=== PATIENT | male | born 1940 | race Caucasian/White ===

== ENCOUNTER 2018-02-05 13:22 | Day surgery (SDC) | payer MEDICARE, SELFPAY ==
[2018-02-05 13:44] VITALS: BP 147/88; PULSE 53; RESP 16; TEMP 36.6; O2SAT 98; BMI 22.1
[2018-02-05] MEDS: SODIUM CHLORIDE 0.9% 1,000 ML 200 ML IV (14:06)
--- NOTE | 2018-02-05 14:21 | PM.HP.1 ---
History of Present Illness Date Patient Seen: 02/05/18 Time Patient Seen: 14:21 Chief complaint: [id number] Narrative: 77-year-old male who presents for colorectal screening. It has been 20 years at least since his last examination. He underwent colonoscopy at that time. He reports that the study was normal. He is not having any current gastrointestinal symptoms. Denies nausea, vomiting, loss of appetite, unintended weight loss, abdominal pain, change in bowel habits, diarrhea, constipation, melena, hematochezia, or bright red blood per rectum. Patient History Medical History Hyperlipidemia (Chronic 02/27/13) Glaucoma (Chronic 10/20/13) Gastroesophageal reflux disease (Chronic 10/20/13) Multiple allergies (Chronic 12/06/16) History of appendicitis (Acute) Colonic volvulus (Resolved) Surgical History History of appendectomy (Acute) Volvulus of midgut (Resolved) History of cataract removal with insertion of prosthetic lens (09/01/14) History of cataract removal with insertion of prosthetic lens (08/19/14) History of esophagogastroduodenoscopy (EGD) Family & Social History Family History: Reviewed 02/05/18 by Jonel Rey MD Social History: household members spouse Tobacco & Substance use: Smoking Status Never smoker Meds Home Medications Medication Instructions Recorded Confirmed Type brimonidine-timolol [Combigan] 1 drp OPHTH DAILY #5 ml 05/29/12 02/05/18 History pantoprazole [Protonix] 40 mg PO QDAY PRN #90 tab 12/31/17 02/05/18 Rx simvastatin 40 mg tablet 40 mg PO HS #90 tab 01/04/18 02/05/18 Rx Allergies Allergy/AdvReac Type Severity Reaction Status Date / Time No Known Drug Allergies Allergy Verified 02/05/18 13:39 Review of Systems Review of Systems All systems reviewed & are unremarkable except as noted in HPI and below Exam Vital Signs (past 8 hours): - 02/05/18 13:44 Temperature 97.8 F Pulse Rate 53 L Respiratory Rate 16 Blood Pressure 147/88 H Pulse Oximetry 98 Oxygen Delivery Method Room Air Narrative Exam Narrative: Elderly thin male lying comfortably in the bed no acute distress. Alert oriented x3. Sclera nonicteric Neck is supple Chest clear to auscultation bilaterally with regular rate rhythm. No murmurs, gallops, rubs Abdomen soft, nondistended, nontender, no masses. He has a well-healed extended right lower quadrant abdominal scar without obvious hernia. No hepatomegaly. Extremities show no clubbing, cyanosis, or edema Objective Labs Labs: No recent laboratory or radiographic studies for review Assessment & Plan (1) Screening for colorectal cancer: Current visit: Yes Status: Acute Plan: Assessment/Plan Narrative: 77-year-old male requiring colorectal screening since it has been more than 20 years from his prior examination. Colonoscopy is currently recommended. I discussed the technical details of the procedure with the patient at length. Risks, benefits, alternatives were explained. He understands that his risk of incomplete colonoscopy is slightly higher given his history of volvulus and prior major abdominal surgery. Risks including but not limited to sedation, aspiration, bleeding, pain, missed lesion, incomplete examination, need for further radiographic studies, colonic perforation, need for major abdominal surgery, and all attendant risks of major surgery were explained in detail. All questions were answered to his satisfaction, and he voiced understanding. Consent was placed on the chart. We will proceed with colonoscopy as above.
--- NOTE | 2018-02-05 14:27 | PM.PREOP ---
Pre-operative Note Interval Note Pre-op Check: History & Physical Reviewed by Physician, Exam Performed and History & Physical exam performed today H&P completed within 30 days and has changed as indicated here:: Patient seen and examined today. History physical examination documented on the chart. He requires colorectal screening. Colonoscopy is recommended. We will proceed as planned today. ASA Class (for procedural sedation): II
[2018-02-05] MEDS: fentaNYL 250 MCG/5 ML INJ IV (14:56)
[2018-02-05] MEDS: MIDAZOLAM 5 MG/5 ML VIAL IV (14:57)
--- NOTE | 2018-02-05 14:58 | PM.OP.ENDO ---
Operative Date/Time/Diagnoses - Date of procedure: 02/05/18 Time of procedure: 14:58 Pre-op diagnosis: Colorectal screening Post-op diagnosis: other (Sigmoid diverticulosis with associated stricture) Procedure & Clinicians Study performed: 1. Sedation per surgeon 2. Incomplete colonoscopy constituting flexible sigmoidoscopy to 30 cm Same procedure as scheduled: No (Patient was significant sigmoid diverticulosis and associated stricture prohibiting complete colonoscopy) Indications: 77-year-old male who presents for colorectal screening. It has been 20 years approximately since his last exam. Colonoscopy is currently recommended. Surgeon: Jonel Rey Procedure Notes SCOAP/Timeout: Yes Procedure in detail: After obtaining informed consent patient was brought to the endoscopy suite and attached all appropriate cardiopulmonary monitors. Nasal cannula oxygen was applied. He was placed in left lateral decubitus position. A SCOAP time-out was performed per standard protocol. Intravenous sedation was achieved per the surgeon using fentanyl and Versed. Digital rectal examination was performed revealing no rectal masses or abnormalities. Prostate was smooth without nodules. Colonoscope was inserted into the rectum and the bowel was insufflated with carbon dioxide. Under direct visualization of the colonic lumen the scope was advanced approximately 30 cm in the sigmoid colon. The rectosigmoid junction was quite fixed and there were several tight sigmoid sharp corners at this level. The 1st 1 was negotiated but the 2nd 1 was encountered immediately thereafter in the midst of significant circumferential diverticulosis. At this point the lumen could not be fully visualized despite multiple maneuvers I could not advance the scope safely beyond this level due to an apparent stricture. I was unable to ascertain whether the stricture was from prior diverticulitis or from his adhesions due to previous abdominal operation for volvulus. Regardless the patient was repositioned both supine and then into the right lateral decubitus position. He was then placed back in left lateral decubitus position. Despite all of these maneuvers and inserting and reinserting the endoscope in an attempt to obtain a better angle at the strictured portion of the sigmoid colon I was unable to navigate beyond this point at 30 cm approximately. No abnormalities were appreciated up to that level. Diverticulosis only was seen. At this point it became apparent that I was not going to be able to navigate beyond this level so I abandoned the procedure at this stage. Scope was removed. Patient was taken recovery in stable condition. We will proceed with air contrast barium enema in the near future to complete the screening examination process. Scope withdrawal time: Not applicable Sedation minutes: 25 Findings: diverticulosis and stricture (As above) Specimen(s): none sent Complications: none Recommendations: High fiber diet and Other recommendation (Complete screening examination with follow-up air contrast barium enema) Plan for aftercare: 1. Discharge to home today 2. Follow up with surgery Clinic after barium enema study is completed Follow up: weeks (Following air contrast barium enema study) Disposition: PACU
[2018-02-05 15:00] VITALS: BP 106/55; PULSE 48; RESP 13; TEMP 36.4; O2SAT 97
[2018-02-05 15:04] VITALS: BP 92/47; PULSE 44; RESP 18; O2SAT 98
[2018-02-05 15:21] VITALS: BP 128/66; PULSE 51; RESP 15; TEMP 36.2; O2SAT 96
== END 2018-02-05 15:32 | disposition home or self-care (01) ==
PROVIDERS: Family Provider Family Medicine; PCP Family Medicine; Visit Provider Surgery
PROC: 0DJD8ZZ Inspection of Lower Intestinal Tract, Via Natural or Artificial Opening Endoscopic (ICD-10-PCS; CPT 45378; principal; 2018-02-05 15:00)
DX: Z12.11 Encounter for screening for malignant neoplasm of colon (principal); K57.30 Diverticulosis of large intestine without perforation or abscess without bleeding
CPT/HCPCS: G0104; 99152; 99153; J2250; J3010

== ENCOUNTER → 2018-02-11 09:06 | Outpatient (CLI) | payer MEDICARE, SELFPAY ==
--- NOTE | 2018-02-11 09:08 | DI.RAD.S_ITS ---
PROCEDURE: FL BARIUM ENEMA W AIR CONTRAST INDICATIONS: incomplete colonoscopy for colorectasl screening COMPARISON: None. FINDINGS: KUB: Pre-procedural office nurse practitioner film demonstrates a normal bowel gas pattern. No suspicious abdominal calcifications. Visualized solid organ contours are normal in size. No suspicious bony lesions. Colon: There is adequate air-contrast opacification from the rectum to the cecum. No strictures, ulcers, polyps, or masses are seen. Haustral folds are normal in thickness throughout. There is sigmoid and left colonic diverticulosis, no acute diverticulitis is suspected.. IMPRESSION: Moderately redundant colon, sigmoid and left colonic diverticulosis, no polyp or mass, or evidence of acute inflammatory process. The cecum was well-visualized, and appears normal. Dictated by: Lex Kirby M.D. on 02/11/2018 at 11:42 Approved by: Lex Kirby M.D. on 02/11/2018 at 11:43
== END ==
PROVIDERS: PCP Family Medicine; Visit Provider Surgery
DX: Q43.8 Other specified congenital malformations of intestine (principal); K57.90 Diverticulosis of intestine, part unspecified, without perforation or abscess without bleeding; Z12.11 Encounter for screening for malignant neoplasm of colon
CPT/HCPCS: 74280

== ENCOUNTER → 2018-09-18 09:09 | Outpatient (CLI) | payer MEDICARE, SELFPAY ==
[2018-09-18 09:58] LABS: Alanine Aminotransferase 26 IU/L (21-72); Albumin 4.1 g/dL (3.5-5.0); Albumin Globulin Ratio 1.4 (1.0-2.8); Alkaline Phosphatase 55 U/L (38-126); Aspartate Aminotransferase 21 IU/L (17-59); BUN Creatinine Ratio 23.3 (6-22); Bilirubin Total 0.7 mg/dL (0.2-1.3); Blood Urea Nitrogen 21 mg/dL (9-20); Calcium 8.8 mg/dL (8.4-10.2); Carbon Dioxide 31 mmol/L (22-32); Chloride 101 mmol/L (98-107); Cholesterol 192 mg/dL (140-199); Estimated Glomerular Filt Rate > 60.0 mL/min (>60); Glucose 99 mg/dL (80-110); HDL Cholesterol 47 mg/dL (40-60); HEMOLYSIS < 15 (0-50); LDL Cholesterol Calculated 122 mg/dL (<100); Potassium 3.8 mmol/L (3.4-5.1); Sodium 140 mmol/L (137-145); Total Protein 7.1 g/dL (6.3-8.2); Triglycerides 116 mg/dL (35-150)
== END ==
PROVIDERS: Family Provider Family Medicine; PCP Family Medicine; Visit Provider Family Medicine
DX: E78.5 Hyperlipidemia, unspecified (principal); R03.0 Elevated blood-pressure reading, without diagnosis of hypertension; R73.01 Impaired fasting glucose
CPT/HCPCS: 36415; 80053; 80061

== ENCOUNTER → 2019-11-14 08:08 | Outpatient (CLI) | payer MEDICARE, SELFPAY ==
[2019-11-14 10:26] LABS: Add Manual Diff / Slide Review NO; Basophils Absolute Auto 0 /uL (0-100); Basophils Percent Auto 0.7 % (0-2); Eosinophils Absolute Auto 200 /uL (0-450); Eosinophils Percent Auto 5.8 % (2-4); Hemoglobin 13.2 g/dL (13.5-17.5); Lymphocytes Absolute Auto 1500 /uL (1100-4500); Lymphocytes Percent Auto 40.1 % (25-40); Mean Corpuscular HGB Conc 33.8 % (30-36); Mean Corpuscular Hemoglobin 31.7 PG (26-34); Monocytes Absolute Auto 300 /uL (0-900); Monocytes Percent Auto 7.9 % (3-14); Neutrophils Absolute Auto 1700 /uL (1500-7000); Neutrophils Percent Auto 45.5 % (50-75); Platelet Count 211 X10^3/uL (150-400); Red Blood Cell Count 4.15 X10^6/uL (4.5-5.9); Red Cell Distribution Width 12.4 % (11.6-14.8); White Blood Cell Count 3.7 X10^3/uL (4.5-11.0)
[2019-11-14 10:40] LABS: Alanine Aminotransferase 16 IU/L (<50); Albumin Globulin Ratio 1.3 (1.0-2.8); Alkaline Phosphatase 56 U/L (38-126); Aspartate Aminotransferase 25 IU/L (17-59); BUN Creatinine Ratio 23.4 (6-22); Bilirubin Total 0.6 mg/dL (0.2-1.3); Blood Urea Nitrogen 22 mg/dL (9-20); Calcium 8.9 mg/dL (8.4-10.2); Carbon Dioxide 31 mmol/L (22-32); Chloride 103 mmol/L (98-107); Cholesterol 181 mg/dL (140-199); Estimated Glomerular Filt Rate > 60.0 mL/min (>60); Globulin 3.1 g/dL (1.7-4.1); Glucose 113 mg/dL (80-110); HDL Cholesterol 45 mg/dL (40-60); HEMOLYSIS < 15 (0-50); LDL Cholesterol Calculated 122 mg/dL (<100); Potassium 4.3 mmol/L (3.4-5.1); Sodium 142 mmol/L (137-145); Total Protein 7.1 g/dL (6.3-8.2); Triglycerides 68 mg/dL (35-150)
== END ==
PROVIDERS: Family Provider Family Medicine; PCP Family Medicine; Referring Provider Family Medicine; Visit Provider Family Medicine
DX: D72.819 Decreased white blood cell count, unspecified (principal); E78.5 Hyperlipidemia, unspecified; K21.9 Gastro-esophageal reflux disease without esophagitis; R03.0 Elevated blood-pressure reading, without diagnosis of hypertension; R73.01 Impaired fasting glucose
CPT/HCPCS: 36415; 80053; 80061; 85025

== ENCOUNTER → 2020-08-02 09:06 | Outpatient (CLI) | payer MEDICARE, SELFPAY ==
[2020-08-02 11:02] LABS: Add Manual Diff / Slide Review NO; Basophils Absolute Auto 0 /uL (0-100); Basophils Percent Auto 0.6 % (0-2); Eosinophils Absolute Auto 200 /uL (0-450); Eosinophils Percent Auto 4.4 % (2-4); Hematocrit 39.3 % (41-53); Hemoglobin 13.4 g/dL (13.5-17.5); Lymphocytes Absolute Auto 1500 /uL (1100-4500); Lymphocytes Percent Auto 34.9 % (25-40); Mean Corpuscular HGB Conc 34.1 % (30-36); Mean Corpuscular Hemoglobin 31.9 PG (26-34); Mean Corpuscular Volume 93.4 fL (80-100); Monocytes Absolute Auto 300 /uL (0-900); Monocytes Percent Auto 8.1 % (3-14); Neutrophils Absolute Auto 2200 /uL (1500-7000); Platelet Count 205 X10^3/uL (150-400); Red Blood Cell Count 4.21 X10^6/uL (4.5-5.9); Red Cell Distribution Width 12.9 % (11.6-14.8); White Blood Cell Count 4.2 X10^3/uL (4.5-11.0)
[2020-08-02 11:16] LABS: HEMOLYSIS < 15 (0-50); Iron 100 ug/dL (49-181)
[2020-08-02 11:18] LABS: BUN Creatinine Ratio 24.2 (6-22); Blood Urea Nitrogen 23 mg/dL (9-20); Calcium 9.1 mg/dL (8.4-10.2); Carbon Dioxide 34 mmol/L (22-32); Chloride 101 mmol/L (98-107); Estimated Glomerular Filt Rate > 60.0 mL/min (>60); Glucose 111 mg/dL (80-110); HEMOLYSIS < 15 (0-50); Potassium 4.8 mmol/L (3.4-5.1); Sodium 139 mmol/L (137-145)
[2020-08-02 11:25] LABS: High Sensitivity CRP - Cardiac 1.6 mg/L (1.0-3.0)
[2020-08-02 11:30] LABS: Percent Iron Saturation 28 % (20-50); Total Iron Binding Capacity 357 ug/dL (261-462); Transferrin 275 mg/dL (206-381)
[2020-08-02 11:52] LABS: Ferritin 26 ng/mL (18-464)
[2020-08-02 12:05] LABS: Vitamin B12 346 pg/mL (239-931)
[2020-08-03 08:36] LABS: Homocysteine 13.4 umol/L (0.0-19.2)
[2020-08-03 23:41] LABS: Methylmalonic Acid,Serum 116 nmol/L (0-378)
== END ==
PROVIDERS: Family Provider Family Medicine; PCP Family Medicine; Referring Provider Family Medicine; Visit Provider Family Medicine
DX: D64.9 Anemia, unspecified (principal); E78.5 Hyperlipidemia, unspecified; K21.9 Gastro-esophageal reflux disease without esophagitis; R73.01 Impaired fasting glucose
CPT/HCPCS: 36415; 80048; 82607; 82728; 83090; 83540; 83550; 83921; 85025; 86140

== ENCOUNTER → 2020-09-08 09:37 | Outpatient (CLI) | payer MEDICARE, SELFPAY ==
[2020-09-08 10:44] LABS: COVID19 -Nasal RAPID Negative (Negative)
== END ==
PROVIDERS: Family Provider Family Medicine; PCP Family Medicine; Visit Provider Specialist
DX: Z20.822 Contact with and (suspected) exposure to COVID-19 (principal)
CPT/HCPCS: 87635; C9803

== ENCOUNTER 2020-09-09 07:30 | Day surgery (SDC) | payer MEDICARE, SELFPAY ==
[2020-09-09] VITALS (8 sets, daily range): BP systolic 70–153; BP diastolic 50–81; PULSE 44–62; RESP 10–20; TEMP 36.1–36.2; O2SAT 96–99; BMI 22.1
--- NOTE | 2020-09-09 | PATH_ITS ---
[facility] Accession Number: [id number] . 01 Material submitted: . esophagus, E-G Junction - GE JUNCTION . 02 Diagnosis: Gastroesophageal Junction, Biopsy: Squamocolumnar junctional mucosa with specialized intestinal metaplasia, consistent with Lopes's esophagus. Negative for dysplasia and malignancy. V 09/14/2020 1004 Local . 02 Electronically signed: . Bruce Higgins MD, PhD, Pathologist NPI- [id number] . 01 Gross description: . The specimen is received in formalin, labeled GE junction and consists of multiple kilpatrick-white fragments of soft tissue measuring 0.8 x 0.6 x 0.2 cm in aggregate. The specimen is entirely submitted in cassette A1. (EA:[id number]) /MRV 09/10/2020 1158 Local . 02 Pathologist provided ICD-10: K22.70 . 02 CPT . 200612 Performed at: 01 [facility] [address] [facility], [place], [place] [id number] MD Roger Brady MD Phone: [phone] Performed at: 02 [facility] [address] [place], [place] [id number] MD Kristin Irwin MD Phone: [phone]
[2020-09-09] MEDS: LACTATED RINGERS 1,000 ML 200 ML IV (07:58)
--- NOTE | 2020-09-09 08:29 | PM.PREOP ---
Pre-operative Note COVID-19 COVID-19 status: Negative Result date/Date tested (Pos, Neg/Pending): 09/08/20 Interval Note History & Physical reviewed/Exam performed by Physician: Yes Changes to H&P: No
[2020-09-09] MEDS: MIDAZOLAM 5 MG/5 ML VIAL IV (08:46)
[2020-09-09] MEDS: LIDOCAINE 4% SOLN 50 ML 20 ML TOP (08:46)
[2020-09-09] MEDS: fentaNYL 250 MCG/5 ML INJ IV (08:47)
--- NOTE | 2020-09-09 08:50 | PM.OP.ENDO ---
Operative Date/Time/Diagnoses Date of procedure: 09/09/20 Time of procedure: 08:51 Pre-op diagnosis: History of Lopes's esophagus Post-op diagnosis: same Procedure & Clinicians Study performed: EGD with cold biopsy Same procedure as scheduled: Yes Indications: Surveillance of Lopes's esophagus Surgeon: Homero Montanez Procedure Notes SCOAP/Timeout: Performed Procedure in detail: The patient had topical anesthetic applied to oropharynx. She was placed in left lateral decubitus position and underwent IV sedation directed by the surgeon consisting of fentanyl and Versed. A bite block was inserted and the scope was advanced through it into the esophagus. The esophagus was unremarkable. GE junction was noted at 40 cm from the incisors. There was no inflammation in this region.. The stomach insufflated well. There were no lesions seen in the body, antrum or at the incisura except an occasional gastric fundic polyp. The pyloric channel was mildly narrowed but patent. The duodenum was unremarkable to the 4th part. The scope was brought back into the stomach and retroflexed. The proximal stomach was normal in appearance. There was no hiatal hernia seen.. The scope was straightened and brought out through the esophagus again. Biopsies were taken in a circular fashion at the GE junction. No additional lesions were seen. The scope was removed and the patient tolerated the procedure well. Scope withdrawal time: Not applicable Sedation minutes: 8 Findings: Lopes's esophagus (By history) Specimen(s): other (GE junction biopsies) Post-procedure Recommendations: EGD in 3 years and Continue medication(s) (Pantoprazole) Follow up: as needed Disposition: PACU
--- NOTE | 2020-09-09 09:40 | SUR.PHASEII ---
Pt met discharge criteria: VSS, denied pain or nausea, able to drink fluids without problem. Discharge instructions discussed, all questions answered. Transported via W\C to private vehicle.
== END 2020-09-09 09:33 | disposition home or self-care (01) ==
PROVIDERS: Family Provider Family Medicine; PCP Family Medicine; Referring Provider Family Medicine; Visit Provider Specialist
PROC: 0DJ08ZZ Inspection of Upper Intestinal Tract, Via Natural or Artificial Opening Endoscopic (ICD-10-PCS; CPT 43235; principal; 2020-09-09 08:30)
DX: K22.70 Barrett's esophagus without dysplasia (principal)
CPT/HCPCS: 43239; 99152; J2250; J3010

== ENCOUNTER → 2021-01-24 09:22 | Outpatient (CLI) | payer MEDICARE, SELFPAY ==
[2021-01-24 10:01] LABS: Add Manual Diff / Slide Review NO; Basophils Absolute Auto 0 /uL (0-100); Basophils Percent Auto 0.7 % (0-2); Eosinophils Absolute Auto 200 /uL (0-450); Eosinophils Percent Auto 5.9 % (2-4); Hematocrit 39.7 % (41-53); Hemoglobin 13.3 g/dL (13.5-17.5); Lymphocytes Absolute Auto 1500 /uL (1100-4500); Lymphocytes Percent Auto 39.9 % (25-40); Mean Corpuscular HGB Conc 33.5 % (30-36); Mean Corpuscular Hemoglobin 31.6 PG (26-34); Mean Corpuscular Volume 94.6 fL (80-100); Monocytes Absolute Auto 300 /uL (0-900); Monocytes Percent Auto 7.7 % (3-14); Neutrophils Absolute Auto 1700 /uL (1500-7000); Neutrophils Percent Auto 45.8 % (50-75); Platelet Count 204 X10^3/uL (150-400); Red Cell Distribution Width 13.8 % (11.6-14.8); White Blood Cell Count 3.7 X10^3/uL (4.5-11.0)
[2021-01-24 10:04] LABS: Hemoglobin A1C% w Est Avg Glu 5.1 % (4.0-6.0)
[2021-01-24 10:46] LABS: BUN Creatinine Ratio 21.1 (6-22); Blood Urea Nitrogen 19 mg/dL (9-20); Calcium 8.9 mg/dL (8.4-10.2); Carbon Dioxide 30 mmol/L (22-32); Chloride 101 mmol/L (98-107); Estimated Glomerular Filt Rate > 60.0 mL/min (>60); Glucose 110 mg/dL (80-110); HEMOLYSIS < 15 (0-50); Potassium 4.6 mmol/L (3.4-5.1); Sodium 138 mmol/L (137-145)
== END ==
PROVIDERS: Family Provider Family Medicine; PCP Family Medicine; Referring Provider Family Medicine; Visit Provider Family Medicine
DX: D64.9 Anemia, unspecified (principal); R73.01 Impaired fasting glucose; K21.9 Gastro-esophageal reflux disease without esophagitis; R03.0 Elevated blood-pressure reading, without diagnosis of hypertension
CPT/HCPCS: 36415; 80048; 83036; 85025

== ENCOUNTER → 2021-11-28 09:03 | Outpatient (CLI) | payer MEDICARE, SELFPAY ==
[2021-11-28 10:02] LABS: Add Manual Diff / Slide Review NO; Basophils Absolute Auto 0 /uL (0-100); Basophils Percent Auto 0.4 % (0-2); Eosinophils Absolute Auto 200 /uL (0-450); Eosinophils Percent Auto 3.1 % (2-4); Hematocrit 38.8 % (41-53); Hemoglobin 13.4 g/dL (13.5-17.5); Lymphocytes Absolute Auto 2000 /uL (1100-4500); Lymphocytes Percent Auto 37.5 % (25-40); Mean Corpuscular HGB Conc 34.5 % (30-36); Mean Corpuscular Hemoglobin 32.2 PG (26-34); Mean Corpuscular Volume 93.4 fL (80-100); Monocytes Absolute Auto 400 /uL (0-900); Neutrophils Absolute Auto 2700 /uL (1500-7000); Platelet Count 200 X10^3/uL (150-400); Red Blood Cell Count 4.15 X10^6/uL (4.5-5.9); Red Cell Distribution Width 13.4 % (11.6-14.8); White Blood Cell Count 5.2 X10^3/uL (4.5-11.0)
[2021-11-28 10:09] LABS: Hemoglobin A1C% w Est Avg Glu 5.4 % (4.0-6.0)
[2021-11-28 10:15] LABS: Alanine Aminotransferase 17 IU/L (<50); Albumin 4.1 g/dL (3.5-5.0); Albumin Globulin Ratio 1.2 (1.0-2.8); Alkaline Phosphatase 59 U/L (38-126); Aspartate Aminotransferase 26 IU/L (17-59); BUN Creatinine Ratio 25.6 (6-22); Bilirubin Total 0.7 mg/dL (0.2-1.3); Blood Urea Nitrogen 23 mg/dL (9-20); Calcium 8.3 mg/dL (8.4-10.2); Carbon Dioxide 30 mmol/L (22-32); Chloride 105 mmol/L (98-107); Cholesterol 182 mg/dL (140-199); Estimated Glomerular Filt Rate > 60 mL/min (>60); Globulin 3.3 g/dL (1.7-4.1); Glucose 96 mg/dL (80-110); HDL Cholesterol 52 mg/dL (40-60); HEMOLYSIS < 15 (0-50); LDL Cholesterol Calculated 112 mg/dL (<100); Potassium 4.1 mmol/L (3.4-5.1); Sodium 142 mmol/L (137-145); Total Protein 7.4 g/dL (6.3-8.2); Triglycerides 88 mg/dL (35-150)
== END ==
PROVIDERS: Family Provider Family Medicine; PCP Family Medicine; Referring Provider Family Medicine; Visit Provider Family Medicine
DX: D64.9 Anemia, unspecified (principal); R73.01 Impaired fasting glucose; E78.2 Mixed hyperlipidemia; R03.0 Elevated blood-pressure reading, without diagnosis of hypertension; Z51.81 Encounter for therapeutic drug level monitoring
CPT/HCPCS: 36415; 80053; 80061; 83036; 85025

== ENCOUNTER → 2022-11-05 12:25 | Outpatient (CLI) | payer MEDICARE, SELFPAY ==
--- NOTE | 2022-11-05 13:16 | DI.RAD.S_ITS ---
PROCEDURE: XR SHOULDER RT MIN 2V INDICATIONS: Right shoulder strain TECHNIQUE: 3 views of the shoulder were acquired. COMPARISON: None. FINDINGS: Bones: No fractures or dislocations. No suspicious bony lesions. Visualized ribs appear intact. Periarticular osteophyte formation at the acromioclavicular and glenohumeral joints. Soft tissues: No suspicious soft tissue calcifications. IMPRESSION: Osteoarthritis. No acute fracture. No osseous lesion. If symptoms and/or clinical suspicion for pathology persist, further assessment with repeat, or advanced imaging (e.g., CT, MRI, or bone scan) may be helpful for further assessment. Dictated by: Khoa Morton M.D. on 11/05/2022 at 13:31 Approved by: Khoa Morton M.D. on 11/05/2022 at 13:31
== END ==
PROVIDERS: Family Provider Family Medicine; PCP Family Medicine; Referring Provider Nurse Practitioner Family; Visit Provider Nurse Practitioner Family
DX: M19.011 Primary osteoarthritis, right shoulder (principal); S46.911A Strain of unspecified muscle, fascia and tendon at shoulder and upper arm level, right arm, initial encounter
CPT/HCPCS: 73030

== ENCOUNTER → 2022-12-18 09:25 | Outpatient (CLI) | payer MEDICARE, SELFPAY ==
[2022-12-18 11:14] LABS: Alanine Aminotransferase 18 IU/L (<50); Albumin 3.9 g/dL (3.5-5.0); Albumin Globulin Ratio 1.3 (1.0-2.8); Alkaline Phosphatase 69 U/L (38-126); Aspartate Aminotransferase 22 IU/L (17-59); BUN Creatinine Ratio 22.2 (6-22); Bilirubin Total 0.6 mg/dL (0.2-1.3); Blood Urea Nitrogen 22 mg/dL (9-20); Calcium 8.7 mg/dL (8.4-10.2); Carbon Dioxide 31 mmol/L (22-32); Chloride 103 mmol/L (98-107); Cholesterol 189 mg/dL (140-199); Estimated Glomerular Filt Rate > 60 mL/min (>60); Globulin 3.1 g/dL (1.7-4.1); Glucose 100 mg/dL (80-110); HDL Cholesterol 52 mg/dL (40-60); HEMOLYSIS < 15 (0-50); LDL Cholesterol Calculated 119 mg/dL (<100); Potassium 4.4 mmol/L (3.4-5.1); Sodium 139 mmol/L (137-145); Triglycerides 90 mg/dL (35-150)
[2022-12-19 08:10] LABS: x Labcorp Estim. Avg Glu (eAG) 108 mg/dL (.); x Labcorp Hemoglobin A1c 5.4 % (4.8-5.6)
== END ==
PROVIDERS: Family Provider Family Medicine; PCP Family Medicine; Referring Provider Family Medicine; Visit Provider Family Medicine
DX: Z00.00 Encounter for general adult medical examination without abnormal findings; E78.5 Hyperlipidemia, unspecified; R73.01 Impaired fasting glucose
CPT/HCPCS: 36415; 80053; 80061; 83036

== ENCOUNTER 2023-02-15 10:00 | Outpatient (RCR) | payer MEDICARE, SELFPAY ==
--- NOTE | 2023-01-29 16:51 | PT.OIE ---
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) Colonic stricture Colonic volvulus Diverticulosis Encounter for initial annual wellness visit (AWV) in Medicare patient Gastroesophageal reflux disease (10/20/13) Glaucoma (10/20/13) Hearing loss History of appendicitis Hyperlipidemia (02/27/13) Leukopenia Screening for colorectal cancer Past Surgical History (Last Reviewed 12/25/22 @ 09:57 by Sylvester Perry RN) History of appendectomy History of bone marrow biopsy History of cataract removal with insertion of prosthetic lens (09/01/14) History of cataract removal with insertion of prosthetic lens (08/19/14) History of esophagogastroduodenoscopy (EGD) (~08/2020) Volvulus of midgut Visit Care Team Role Provider Type Contreras Ramachandran DO Attending Provider Physician Family Provider Primary Care Provider Referring Provider Specialty: [facility] Address: [address] [place] [address], [address], [facility] Email: [email or web address] Physical Therapy Initial Evaluation PT-OP-A Visit Information Start: 01/29/23 15:27 Freq: Status: Active Protocol: Document 01/29/23 15:28 ES (Rec: 01/29/23 16:50 ES [id number]) Out-Patient Physical Therapy Visit Information Visit Information Visit Type Initial Evaluation Visit Start Time 15:30 Visit Stop Time 16:24 Total Visit Minutes 54 Visit Number 1 Evaluation Information Evaluation Date 01/29/23 PT-OP-B Current Condition Start: 01/29/23 15:27 Freq: Status: Active Protocol: Document 01/29/23 15:28 ES (Rec: 01/29/23 16:50 ES [id number]) Current Condition History of Current Condition Onset Date 3 months ago Current Complaints R shoulder pain History of Current Condition Patient reported that he doesn 't recall any incident that caused his R shoulder to hurt, but noticed that he was having some difficulty raising his arm up with weight in the hand beginning about 3 months ago. Was doing 50 push-ups every day for years, then his doctor told him he shouldn't do them so he stopped. Saw a new doctor who recommended he start exercising his arm again , now doing them at an incline to make them easier and it doesn't bother the shoulder. Notes that his shoulder has improved in the past month since resuming exercises. Has a hx of falling backward and landing on the R shoulder many years ago when working for the [employer]. Went to PT at the time and it got better and didn't have problems with it afterward. Has a hx of neck problems; had an injection and the pain never came back. Patient is R-hand dominant. Prior Treatments and Tests X-rays show osteophyte Future Testing and Treatments Planned MRI if the shoulder isn't getting better Treatment Goals Patient/Caregiver Goals To find out if the rotator cuff is okay/to know exactly what happened. To learn some exercises to do to get the shoulder better. Current Functional Impairments (Reported) Functional Limitations- ADL's Putting dishes away in high cabinets, pushing against resistance such as when working in his garage, putting on/taking off shirts, washing his back Functional Limitations- Mobility/Gait Rolling over in bed PT-OP-C Subjective Start: 01/29/23 15:27 Freq: Status: Active Protocol: Document 01/29/23 15:28 ES (Rec: 01/29/23 16:50 ES [id number]) Patient Questionnaires Quick Dash- Upper Extremity Quick Dash UE Score 36.4 Quick Dash UE Impairment 20 to 39% Impaired (Score 20- 39) OP-PT Pain Assessment Location Right Shoulder Pain Location Details Lateral R shoulder Scale Used Worst 5/10, best 0/10, avg 4/ 10 Description Aching,Dull,Sharp,With Movement Frequency Intermittent Pain Aggravating Factors Changing Position,ADL's, Lifting Pain Alleviating Factors Medication,Exercise,Changing Position PT-OP-F Manual Assessment Start: 01/29/23 15:27 Freq: Status: Active Protocol: Document 01/29/23 15:28 ES (Rec: 01/29/23 16:50 ES [id number]) Manual Assessments Joint Mobility Assessment Joint Mobility Assessment Decreased GHJ posterior and inferior glide B. No increased pain with assessment. Increased IR ROM from S1 to L5 after posterior glides performed. PT-OP-J Posture/Palpation/Skin Start: 01/29/23 15:27 Freq: Status: Active Protocol: Document 01/29/23 15:28 ES (Rec: 01/29/23 16:50 ES [id number]) Posture Evaluation Position Standing Head/C-Spine Posture Forward Head Shoulder Posture (R) Forward Scapula Posture (R) Depressed Comments Posture Comments Anterior humeral head R. R humerus in extension at rest . Prominant R acromion and AC joint. R bicep balled at distal upper arm, no swelling/redness/ tenderness. Palpation Assessment Location R shoulder Palpation Details No tenderness throughout shoulder region. PT-OP-K Range of Motion Start: 01/29/23 15:27 Freq: Status: Active Protocol: Document 01/29/23 15:28 ES (Rec: 01/29/23 16:50 ES [id number]) Shoulder Goniometric Range of Motion Shoulder Left Active Testing Position Standing Internal Rotation Behind Back (text) L3 Right Active Testing Position Standing Internal Rotation Behind Back (text) S1 Comments Flexion, abduction, horizontal abduction all equal to L and no increase in pain. R humeral head translates anterior during IR behind back . PT-OP-M Strength Start: 01/29/23 15:27 Freq: Status: Active Protocol: Document 01/29/23 15:28 ES (Rec: 01/29/23 16:50 ES [id number]) Shoulder Strength Shoulder Manual Muscle Testing Left Flexion 5 Normal Abduction (C5) 5 Normal External Rotation 5 Normal Internal Rotation 5 Normal Right Flexion 4+ Good+ Abduction (C5) 4- Good- External Rotation 3+ Fair+ Internal Rotation 5 Normal Comments Elbow flex/ext 5/5 Increased pain with ER resistance PT-OP-Q Treatments Start: 01/29/23 15:27 Freq: Status: Active Protocol: Document 01/29/23 15:28 ES (Rec: 01/29/23 16:50 ES [id number]) Therapeutic Exercises Standing Exercises Doorway isometrics Side right Reps/Minutes [id number] Comments HEP (see handout) PT-OP-T Assessment and Plan Start: 01/29/23 15:27 Freq: Status: Active Protocol: Document 01/29/23 15:28 ES (Rec: 01/29/23 16:50 ES [id number]) Physical Therapy Assessment Rehab Potential Rehabilitation Potential Good Evaluation Complexity Number of Personal Factors/Comorbidities 0 Number of Body Systems Impaired 1-2 Clinical Presentation at Evaluation Stable Impairments Impairments Functional Activities,Pain, Posture,ROM,Strength Goals Three Impairment Function Mcc Goal (LTG) Patient will score 20 or less on QuickDASH indicating clinically significant improvement in function. LTG Duration 8 weeks (03/26/23) Two Impairment Strength Short Term Goal (STG) Patient will increase R shoulder ER strength to 4/5, abduction strength to 5/5. STG Duration 4 weeks (02/26/23) Mcc Goal (LTG) Patient will be able to lift at least 6 lbs above shoulder height without increased pain to be able to put dishes away in cabinets. LTG Duration 8 weeks (03/26/23) One Impairment ROM Short Term Goal (STG) Patient will increase R shoulder IR AROM to L4 to be able to wash his back. STG Duration 4 weeks (02/26/23) Assessment Summary Assessment Patient is a 82 year old male who presents with R shoulder pain. He demonstrates scapular position fault of depression and anterior translation including anterior humeral head translation along with humeral extension. He has limited IR ROM, and tested weak with ER. He has stiffness in GHJ with posterior and caudal glides. He had improved ROM following manual gliding and RC activation ex's today without loss of overhead strength afterward. He is functionally limited in his ability to participate in ADL' s that involve lifting weighted objects above shoulder height and with pushing against resistance. He will benefit from further skilled PT to improve scapular posture/alignment and control , GHJ mobility, and RC strength to improve his ability to use his R dominant UE for normal daily activity. Physical Therapy Plan Frequency and Duration Frequency of Treatment 1-2x/week Duration of treatment (weeks) 8 Plan of Care Start Date 01/29/23 Plan of Care End Date 03/26/23 Therapeutic Interventions Therapeutic Interventions Home Exercise Program,Joint Mobilizations,Manual Therapy, Neuromuscular Re-education, Patient/Caregiver Education, Self-Care/Home Management,Soft Tissue Mobilization,Taping, Therapeutic Activities, Therapeutic Exercises Modalities Cold Pack/Ice Massage,Electric Stimulation,Hot Packs Next Visit Focus/Plan Next Note Type Treatment Note Next Visit Plan Joint mobilization for posterior glide, progress RC and scapular strengthening
--- NOTE | 2023-01-29 16:51 | PT.OPPOC ---
Physical, Occupational & Speech Therapy At [facility] Current Diagnoses Pain in right shoulder (01/29/23) Visit Care Team Role Provider Type Contreras Ramachandran DO Attending Provider Physician Family Provider Primary Care Provider Referring Provider Specialty: Family Practice Address: [address] [place] [address], [facility] [address] [place], [address] Email: [email or web address] Plan Of Care PT-OP-T Assessment and Plan Start: 01/29/23 15:27 Freq: Status: Active Protocol: Document 01/29/23 15:28 ES (Rec: 01/29/23 16:50 ES [id number]) Physical Therapy Assessment Rehab Potential Rehabilitation Potential Good Evaluation Complexity Number of Personal Factors/Comorbidities 0 Number of Body Systems Impaired 1-2 Clinical Presentation at Evaluation Stable Impairments Impairments Functional Activities,Pain, Posture,ROM,Strength Goals Three Impairment Function Mcc Goal (LTG) Patient will score 20 or less on QuickDASH indicating clinically significant improvement in function. LTG Duration 8 weeks (03/26/23) Two Impairment Strength Short Term Goal (STG) Patient will increase R shoulder ER strength to 4/5, abduction strength to 5/5. STG Duration 4 weeks (02/26/23) Mcc Goal (LTG) Patient will be able to lift at least 6 lbs above shoulder height without increased pain to be able to put dishes away in cabinets. LTG Duration 8 weeks (03/26/23) One Impairment ROM Short Term Goal (STG) Patient will increase R shoulder IR AROM to L4 to be able to wash his back. STG Duration 4 weeks (02/26/23) Assessment Summary Assessment Patient is a 82 year old male who presents with R shoulder pain. He demonstrates scapular position fault of depression and anterior translation including anterior humeral head translation along with humeral extension. He has limited IR ROM, and tested weak with ER. He has stiffness in GHJ with posterior and caudal glides. He had improved ROM following manual gliding and RC activation ex's today without loss of overhead strength afterward. He is functionally limited in his ability to participate in ADL' s that involve lifting weighted objects above shoulder height and with pushing against resistance. He will benefit from further skilled PT to improve scapular posture/alignment and control , GHJ mobility, and RC strength to improve his ability to use his R dominant UE for normal daily activity. Physical Therapy Plan Frequency and Duration Frequency of Treatment 1-2x/week Duration of treatment (weeks) 8 Plan of Care Start Date 01/29/23 Plan of Care End Date 03/26/23 Therapeutic Interventions Therapeutic Interventions Home Exercise Program,Joint Mobilizations,Manual Therapy, Neuromuscular Re-education, Patient/Caregiver Education, Self-Care/Home Management,Soft Tissue Mobilization,Taping, Therapeutic Activities, Therapeutic Exercises Modalities Cold Pack/Ice Massage,Electric Stimulation,Hot Packs Next Visit Focus/Plan Next Note Type Treatment Note Next Visit Plan Joint mobilization for posterior glide, progress RC and scapular strengthening Plan of Care Dates Plan of Care Start Date 01/29/23 Plan of Care End Date 03/26/23 Electronically Signed by: Mana Aguilar, PT 01/29/23 9602 If you are in agreement with this Plan of Care, please return a signed and dated copy. I have reviewed this Plan of Care and certify that the skilled therapy services above are required to meet the patient?s needs. Physician Signature Date Printed Name and Credentials Clinical Instructor Signature Printed Name and Credentials
--- NOTE | 2023-02-01 16:37 | PT.OTN ---
Current Diagnoses Pain in right shoulder (02/01/23) Physical Therapy Treatment Note PT-OP-A Visit Information Start: 01/29/23 15:27 Freq: Status: Active Protocol: Document 02/01/23 15:38 ES (Rec: 02/01/23 16:37 ES [id number]) Out-Patient Physical Therapy Visit Information Visit Information Visit Type Treatment Note Visit Start Time 15:36 Visit Stop Time 16:18 Total Visit Minutes 42 Visit Number 2 PT-OP-B Current Condition Start: 01/29/23 15:27 Freq: Status: Active Protocol: Document 01/29/23 15:28 ES (Rec: 01/29/23 16:50 ES [id number]) Current Condition History of Current Condition Onset Date 3 months ago Current Complaints R shoulder pain History of Current Condition Patient reported that he doesn 't recall any incident that caused his R shoulder to hurt, but noticed that he was having some difficulty raising his arm up with weight in the hand beginning about 3 months ago. Was doing 50 push-ups every day for years, then his doctor told him he shouldn't do them so he stopped. Saw a new doctor who recommended he start exercising his arm again , now doing them at an incline to make them easier and it doesn't bother the shoulder. Notes that his shoulder has improved in the past month since resuming exercises. Has a hx of falling backward and landing on the R shoulder many years ago when working for the [employer]. Went to PT at the time and it got better and didn't have problems with it afterward. Has a hx of neck problems; had an injection and the pain never came back. Patient is R-hand dominant. Prior Treatments and Tests X-rays show osteophyte Future Testing and Treatments Planned MRI if the shoulder isn't getting better Treatment Goals Patient/Caregiver Goals To find out if the rotator cuff is okay/to know exactly what happened. To learn some exercises to do to get the shoulder better. Current Functional Impairments (Reported) Functional Limitations- ADL's Putting dishes away in high cabinets, pushing against resistance such as when working in his garage, putting on/taking off shirts, washing his back Functional Limitations- Mobility/Gait Rolling over in bed PT-OP-C Subjective Start: 01/29/23 15:27 Freq: Status: Active Protocol: Document 02/01/23 15:38 ES (Rec: 02/01/23 16:37 ES [id number]) OP-PT Subjective Patient Comments Patient Comments Patient reported that his shoulder has been feeling pretty good since last visit. No problems with HEP. Still having trouble reaching behind his back and lifting weight above head. PT-OP-F Manual Assessment Start: 01/29/23 15:27 Freq: Status: Active Protocol: Document 01/29/23 15:28 ES (Rec: 01/29/23 16:50 ES [id number]) Manual Assessments Joint Mobility Assessment Joint Mobility Assessment Decreased GHJ posterior and inferior glide B. No increased pain with assessment. Increased IR ROM from S1 to L5 after posterior glides performed. PT-OP-J Posture/Palpation/Skin Start: 01/29/23 15:27 Freq: Status: Active Protocol: Document 01/29/23 15:28 ES (Rec: 01/29/23 16:50 ES [id number]) Posture Evaluation Position Standing Head/C-Spine Posture Forward Head Shoulder Posture (R) Forward Scapula Posture (R) Depressed Comments Posture Comments Anterior humeral head R. R humerus in extension at rest . Prominant R acromion and AC joint. R bicep balled at distal upper arm, no swelling/redness/ tenderness. Palpation Assessment Location R shoulder Palpation Details No tenderness throughout shoulder region. PT-OP-K Range of Motion Start: 01/29/23 15:27 Freq: Status: Active Protocol: Document 01/29/23 15:28 ES (Rec: 01/29/23 16:50 ES [id number]) Shoulder Goniometric Range of Motion Shoulder Left Active Testing Position Standing Internal Rotation Behind Back (text) L3 Right Active Testing Position Standing Internal Rotation Behind Back (text) S1 Comments Flexion, abduction, horizontal abduction all equal to L and no increase in pain. R humeral head translates anterior during IR behind back . PT-OP-M Strength Start: 01/29/23 15:27 Freq: Status: Active Protocol: Document 01/29/23 15:28 ES (Rec: 01/29/23 16:50 ES [id number]) Shoulder Strength Shoulder Manual Muscle Testing Left Flexion 5 Normal Abduction (C5) 5 Normal External Rotation 5 Normal Internal Rotation 5 Normal Right Flexion 4+ Good+ Abduction (C5) 4- Good- External Rotation 3+ Fair+ Internal Rotation 5 Normal Comments Elbow flex/ext 5/5 Increased pain with ER resistance PT-OP-Q Treatments Start: 01/29/23 15:27 Freq: Status: Active Protocol: Document 02/01/23 15:38 ES (Rec: 02/01/23 16:37 ES [id number]) Therapeutic Exercises Supine Exercises Shoulder RROM Supine Exercise Name IR at 45 degrees abd Side right Resistance Manual, light Reps/Minutes x10 Comments cued for humeral and scapular control Standing Exercises IR towel stretch Side right Reps/Minutes [id number] Comments Instructed for home, handout given Doorway isometrics Comments Reviewed Manual Therapy Treatment Soft Tissue Mobilization R shoulder Body Location Scapulohumeral mm's Mobilization Type Myofascial Release,Sustained Pressure Intensity/Depth Light to moderate Body Position Supine Joint Mobilizations GHJ Direction A-P, S-I Grade III Body Position Supine Comments in 60 degrees abd PT-OP-T Assessment and Plan Start: 01/29/23 15:27 Freq: Status: Active Protocol: Document 02/01/23 15:38 ES (Rec: 02/01/23 16:37 ES [id number]) Physical Therapy Assessment Impairments Impairments Functional Activities,Pain, Posture,ROM,Strength Goals Three Impairment Function Box Stacker Goal (LTG) Patient will score 20 or less on QuickDASH indicating clinically significant improvement in function. LTG Duration 8 weeks (03/26/23) Two Impairment Strength Short Term Goal (STG) Patient will increase R shoulder ER strength to 4/5, abduction strength to 5/5. STG Duration 4 weeks (02/26/23) Group Home Goal (LTG) Patient will be able to lift at least 6 lbs above shoulder height without increased pain to be able to put dishes away in cabinets. LTG Duration 8 weeks (03/26/23) One Impairment ROM Short Term Goal (STG) Patient will increase R shoulder IR AROM to L4 to be able to wash his back. STG Duration 4 weeks (02/26/23) Assessment Summary Assessment Patient tolerated manual therapy and IR stretching without increase in pain. He demonstrated improved R shoulder IR ROM from S1 to L4 following treatment. He continues to have significant weakness of ER, unable to tolerate any added resistance against gravity. Physical Therapy Plan Frequency and Duration Frequency of Treatment 1-2x/week Duration of treatment (weeks) 8 Plan of Care Start Date 01/29/23 Plan of Care End Date 03/26/23 Therapeutic Interventions Therapeutic Interventions Home Exercise Program,Joint Mobilizations,Manual Therapy, Neuromuscular Re-education, Patient/Caregiver Education, Self-Care/Home Management,Soft Tissue Mobilization,Taping, Therapeutic Activities, Therapeutic Exercises Modalities Cold Pack/Ice Massage,Electric Stimulation,Hot Packs Next Visit Focus/Plan Next Note Type Treatment Note Next Visit Plan Continue manual therapy, progress RC and scapular strengthening
--- NOTE | 2023-02-06 16:24 | PT.OTN ---
Current Diagnoses Pain in right shoulder (02/06/23) Physical Therapy Treatment Note PT-OP-A Visit Information Start: 01/29/23 15:27 Freq: Status: Active Protocol: Document 02/06/23 15:32 ES (Rec: 02/06/23 16:24 ES [id number]) Out-Patient Physical Therapy Visit Information Visit Information Visit Type Treatment Note Visit Start Time 15:32 Visit Stop Time 16:14 Total Visit Minutes 42 Visit Number 3 Evaluation Information Evaluation Date 01/29/23 PT-OP-B Current Condition Start: 01/29/23 15:27 Freq: Status: Active Protocol: Document 01/29/23 15:28 ES (Rec: 01/29/23 16:50 ES [id number]) Current Condition History of Current Condition Onset Date 3 months ago Current Complaints R shoulder pain History of Current Condition Patient reported that he doesn 't recall any incident that caused his R shoulder to hurt, but noticed that he was having some difficulty raising his arm up with weight in the hand beginning about 3 months ago. Was doing 50 push-ups every day for years, then his doctor told him he shouldn't do them so he stopped. Saw a new doctor who recommended he start exercising his arm again , now doing them at an incline to make them easier and it doesn't bother the shoulder. Notes that his shoulder has improved in the past month since resuming exercises. Has a hx of falling backward and landing on the R shoulder many years ago when working for the [employer]. Went to PT at the time and it got better and didn't have problems with it afterward. Has a hx of neck problems; had an injection and the pain never came back. Patient is R-hand dominant. Prior Treatments and Tests X-rays show osteophyte Future Testing and Treatments Planned MRI if the shoulder isn't getting better Treatment Goals Patient/Caregiver Goals To find out if the rotator cuff is okay/to know exactly what happened. To learn some exercises to do to get the shoulder better. Current Functional Impairments (Reported) Functional Limitations- ADL's Putting dishes away in high cabinets, pushing against resistance such as when working in his garage, putting on/taking off shirts, washing his back Functional Limitations- Mobility/Gait Rolling over in bed PT-OP-C Subjective Start: 01/29/23 15:27 Freq: Status: Active Protocol: Document 02/06/23 15:32 ES (Rec: 02/06/23 16:24 ES [id number]) OP-PT Subjective Patient Comments Patient Comments Patient stated his shoulder is still generally sore but is able to do pretty much everything he needs to do with the R arm. Noticed his shoulder was sore for a couple days after starting the towel stretch behind his back. PT-OP-F Manual Assessment Start: 01/29/23 15:27 Freq: Status: Active Protocol: Document 01/29/23 15:28 ES (Rec: 01/29/23 16:50 ES [id number]) Manual Assessments Joint Mobility Assessment Joint Mobility Assessment Decreased GHJ posterior and inferior glide B. No increased pain with assessment. Increased IR ROM from S1 to L5 after posterior glides performed. PT-OP-J Posture/Palpation/Skin Start: 01/29/23 15:27 Freq: Status: Active Protocol: Document 01/29/23 15:28 ES (Rec: 01/29/23 16:50 ES [id number]) Posture Evaluation Position Standing Head/C-Spine Posture Forward Head Shoulder Posture (R) Forward Scapula Posture (R) Depressed Comments Posture Comments Anterior humeral head R. R humerus in extension at rest . Prominant R acromion and AC joint. R bicep balled at distal upper arm, no swelling/redness/ tenderness. Palpation Assessment Location R shoulder Palpation Details No tenderness throughout shoulder region. PT-OP-K Range of Motion Start: 01/29/23 15:27 Freq: Status: Active Protocol: Document 01/29/23 15:28 ES (Rec: 01/29/23 16:50 ES [id number]) Shoulder Goniometric Range of Motion Shoulder Left Active Testing Position Standing Internal Rotation Behind Back (text) L3 Right Active Testing Position Standing Internal Rotation Behind Back (text) S1 Comments Flexion, abduction, horizontal abduction all equal to L and no increase in pain. R humeral head translates anterior during IR behind back . PT-OP-M Strength Start: 01/29/23 15:27 Freq: Status: Active Protocol: Document 01/29/23 15:28 ES (Rec: 01/29/23 16:50 ES [id number]) Shoulder Strength Shoulder Manual Muscle Testing Left Flexion 5 Normal Abduction (C5) 5 Normal External Rotation 5 Normal Internal Rotation 5 Normal Right Flexion 4+ Good+ Abduction (C5) 4- Good- External Rotation 3+ Fair+ Internal Rotation 5 Normal Comments Elbow flex/ext 5/5 Increased pain with ER resistance PT-OP-Q Treatments Start: 01/29/23 15:27 Freq: Status: Active Protocol: Document 02/06/23 15:32 ES (Rec: 02/06/23 16:24 ES [id number]) Therapeutic Exercises Supine Exercises Shoulder RROM Supine Exercise Name IR/ER at 60-90 degrees abd Side right Resistance 1lb Reps/Minutes x10 Comments cued for humeral and scapular control Sidelying Exercises Shoulder IR Resistance 1lb Reps/Minutes x10 Comments In R sidelying, in 90 degrees flex, HEP (see handout) Shoulder ER Resistance 1lb Reps/Minutes x10 Comments at 90 degrees flexion, HEP ( see handout) Shoulder flex Resistance 1lb Reps/Minutes x10 Comments HEP (see handout) Shoulder abd Resistance 1lb Reps/Minutes x10 Comments HEP (see handout) Manual Therapy Treatment Soft Tissue Mobilization R shoulder Body Location Pec major, scapulohumeral mm's , subscap Mobilization Type Myofascial Release,Sustained Pressure Intensity/Depth Moderate Body Position Supine Joint Mobilizations GHJ Direction A-P, S-I Grade III Body Position Supine Comments in 90 degrees abd Sustained posterior glide during manual IR stretch 5x30s PT-OP-T Assessment and Plan Start: 01/29/23 15:27 Freq: Status: Active Protocol: Document 02/06/23 15:32 ES (Rec: 02/06/23 16:24 ES [id number]) Physical Therapy Assessment Goals Three Impairment Function Mcc Goal (LTG) Patient will score 20 or less on QuickDASH indicating clinically significant improvement in function. LTG Duration 8 weeks (03/26/23) Two Impairment Strength Short Term Goal (STG) Patient will increase R shoulder ER strength to 4/5, abduction strength to 5/5. STG Duration 4 weeks (02/26/23) Mcc Goal (LTG) Patient will be able to lift at least 6 lbs above shoulder height without increased pain to be able to put dishes away in cabinets. LTG Duration 8 weeks (03/26/23) One Impairment ROM Short Term Goal (STG) Patient will increase R shoulder IR AROM to L4 to be able to wash his back. STG Duration 4 weeks (02/26/23) Assessment Summary Assessment Patient demonstrated IR behind back to L5 pre-tx demonstrating some carryover from previous treatment. He was able to reach to L4 after treatment. He continues to have weakness in RC; tolerated addition of strengthening today without production of pain. He will benefit from further manual therapy to improve GHJ mechanics and progression of strength to improve his ability to reach and lift with less pain/ difficulty. Physical Therapy Plan Frequency and Duration Frequency of Treatment 1-2x/week Duration of treatment (weeks) 8 Plan of Care Start Date 01/29/23 Plan of Care End Date 03/26/23 Therapeutic Interventions Therapeutic Interventions Home Exercise Program,Joint Mobilizations,Manual Therapy, Neuromuscular Re-education, Patient/Caregiver Education, Self-Care/Home Management,Soft Tissue Mobilization,Taping, Therapeutic Activities, Therapeutic Exercises Modalities Cold Pack/Ice Massage,Electric Stimulation,Hot Packs Next Visit Focus/Plan Next Note Type Treatment Note Next Visit Plan Continue manual therapy, progress RC and scapular strengthening
--- NOTE | 2023-02-09 15:25 | PT.OTN ---
Current Diagnoses Pain in right shoulder (02/09/23) Physical Therapy Treatment Note PT-OP-A Visit Information Start: 01/29/23 15:27 Freq: Status: Active Protocol: Document 02/09/23 12:19 NBM (Rec: 02/09/23 13:33 NBM [id number]) Out-Patient Physical Therapy Visit Information Visit Information Visit Type Treatment Note Visit Start Time 12:18 Visit Stop Time 13:10 Total Visit Minutes 42 Visit Number 4 Number of PATROL MAN Visits 1 Evaluation Information Evaluation Date 01/29/23 PT-OP-B Current Condition Start: 01/29/23 15:27 Freq: Status: Active Protocol: Document 01/29/23 15:28 ES (Rec: 01/29/23 16:50 ES [id number]) Current Condition History of Current Condition Onset Date 3 months ago Current Complaints R shoulder pain History of Current Condition Patient reported that he doesn 't recall any incident that caused his R shoulder to hurt, but noticed that he was having some difficulty raising his arm up with weight in the hand beginning about 3 months ago. Was doing 50 push-ups every day for years, then his doctor told him he shouldn't do them so he stopped. Saw a new doctor who recommended he start exercising his arm again , now doing them at an incline to make them easier and it doesn't bother the shoulder. Notes that his shoulder has improved in the past month since resuming exercises. Has a hx of falling backward and landing on the R shoulder many years ago when working for the [employer]. Went to PT at the time and it got better and didn't have problems with it afterward. Has a hx of neck problems; had an injection and the pain never came back. Patient is R-hand dominant. Prior Treatments and Tests X-rays show osteophyte Future Testing and Treatments Planned MRI if the shoulder isn't getting better Treatment Goals Patient/Caregiver Goals To find out if the rotator cuff is okay/to know exactly what happened. To learn some exercises to do to get the shoulder better. Current Functional Impairments (Reported) Functional Limitations- ADL's Putting dishes away in high cabinets, pushing against resistance such as when working in his garage, putting on/taking off shirts, washing his back Functional Limitations- Mobility/Gait Rolling over in bed PT-OP-C Subjective Start: 01/29/23 15:27 Freq: Status: Active Protocol: Document 02/09/23 12:19 NBM (Rec: 02/09/23 13:33 NBM [id number]) OP-PT Subjective Patient Comments Patient Comments Pt states he may be going to hard with towel stretch and tries not to - it's the only one that bothers him. He states some of the positions for the new ex's but he figured it out. PT-OP-F Manual Assessment Start: 01/29/23 15:27 Freq: Status: Active Protocol: Document 01/29/23 15:28 ES (Rec: 01/29/23 16:50 ES [id number]) Manual Assessments Joint Mobility Assessment Joint Mobility Assessment Decreased GHJ posterior and inferior glide B. No increased pain with assessment. Increased IR ROM from S1 to L5 after posterior glides performed. PT-OP-J Posture/Palpation/Skin Start: 01/29/23 15:27 Freq: Status: Active Protocol: Document 01/29/23 15:28 ES (Rec: 01/29/23 16:50 ES [id number]) Posture Evaluation Position Standing Head/C-Spine Posture Forward Head Shoulder Posture (R) Forward Scapula Posture (R) Depressed Comments Posture Comments Anterior humeral head R. R humerus in extension at rest . Prominant R acromion and AC joint. R bicep balled at distal upper arm, no swelling/redness/ tenderness. Palpation Assessment Location R shoulder Palpation Details No tenderness throughout shoulder region. PT-OP-K Range of Motion Start: 01/29/23 15:27 Freq: Status: Active Protocol: Document 01/29/23 15:28 ES (Rec: 01/29/23 16:50 ES [id number]) Shoulder Goniometric Range of Motion Shoulder Left Active Testing Position Standing Internal Rotation Behind Back (text) L3 Right Active Testing Position Standing Internal Rotation Behind Back (text) S1 Comments Flexion, abduction, horizontal abduction all equal to L and no increase in pain. R humeral head translates anterior during IR behind back . PT-OP-M Strength Start: 01/29/23 15:27 Freq: Status: Active Protocol: Document 01/29/23 15:28 ES (Rec: 01/29/23 16:50 ES [id number]) Shoulder Strength Shoulder Manual Muscle Testing Left Flexion 5 Normal Abduction (C5) 5 Normal External Rotation 5 Normal Internal Rotation 5 Normal Right Flexion 4+ Good+ Abduction (C5) 4- Good- External Rotation 3+ Fair+ Internal Rotation 5 Normal Comments Elbow flex/ext 5/5 Increased pain with ER resistance PT-OP-Q Treatments Start: 01/29/23 15:27 Freq: Status: Active Protocol: Document 02/09/23 12:19 NB (Rec: 02/09/23 13:33 [facility] [id number]) Therapeutic Exercises Supine Exercises Shoulder RROM Supine Exercise Name IR/ER at 60-90 degrees abd Side right Resistance 1lb Reps/Minutes x10 Comments cued for humeral and scapular control Sidelying Exercises Shoulder IR Resistance 1lb Reps/Minutes x10 Comments In R sidelying, in 90 degrees flex, HEP (see handout) Shoulder ER Resistance 1lb Reps/Minutes x10 Comments at 90 degrees flexion, HEP ( see handout) Shoulder flex Resistance 1lb Reps/Minutes x10 Comments HEP (see handout) Shoulder abd Resistance 1lb Reps/Minutes x10 Comments HEP (see handout) Standing Exercises Doorway pec stretch Standing Exercise Name Angles: Low, Mid - added to HEP Side bilateral Reps/Minutes 30s ea Comments Right and Bilateral IR towel stretch Side right Reps/Minutes [id number] Comments Instructed for home, handout given Doorway isometrics Comments Reviewed Manual Therapy Treatment Soft Tissue Mobilization R shoulder Body Location Pec major, subscap Mobilization Type Myofascial Release,Sustained Pressure Intensity/Depth Moderate Body Position Supine Joint Mobilizations GHJ Direction A-P, S-I Grade II Body Position Supine Comments in 90 degrees abd Sustained posterior glide during manual IR stretch 5x30s Self-Care/Home Management Treatment Education Patient Education Home Exercise Program Other Education Added to HEP: Doorway Pec Stretch (Low, Mid) - HO given. PT-OP-T Assessment and Plan Start: 01/29/23 15:27 Freq: Status: Active Protocol: Document 02/09/23 12:19 [facility] (Rec: 02/09/23 13:33 [facility] [id number]) Physical Therapy Assessment Impairments Impairments Functional Activities,Pain, Posture,ROM,Strength Goals Three Impairment Function Mcc Goal (LTG) Patient will score 20 or less on QuickDASH indicating clinically significant improvement in function. LTG Duration 8 weeks (03/26/23) Two Impairment Strength Short Term Goal (STG) Patient will increase R shoulder ER strength to 4/5, abduction strength to 5/5. STG Duration 4 weeks (02/26/23) Mcc Goal (LTG) Patient will be able to lift at least 6 lbs above shoulder height without increased pain to be able to put dishes away in cabinets. 02/09/23: Pt is able to put dishes away overhead now but still notices increased pain doing so. LTG Duration 8 weeks (03/26/23) One Impairment ROM Short Term Goal (STG) Patient will increase R shoulder IR AROM to L4 to be able to wash his back. STG Duration 4 weeks (02/26/23) Assessment Summary Assessment Anthony demonstrates R IR behind back to L5 pre-tx and to L4 end of session. Treatment focus today on HEP review. Pt requires cues for R IR towel stretch to be passive with R upper extremity and pulled into gentle stretch staying in pain-free range - he has a positive feedback response with these cues. Anthony also requires cues for doorway R IR /ER isometric ex's for hand positioning. He requires initial cues for set up of sidelying ex's and slower pacing but is able to complete the second set of each appropriately without further direction. He reports improving functional mobility with now being able to put dishes away overhead using R upper extremity but still notices pain with this. He is now able to sleep on R shoulder without issue. Added to HEP: Doorway Pec Stretch ( Low, Mid) - HO given. Physical Therapy Plan Frequency and Duration Frequency of Treatment 1-2x/week Duration of treatment (weeks) 8 Plan of Care Start Date 01/29/23 Plan of Care End Date 03/26/23 Therapeutic Interventions Therapeutic Interventions Home Exercise Program,Joint Mobilizations,Manual Therapy, Neuromuscular Re-education, Patient/Caregiver Education, Self-Care/Home Management,Soft Tissue Mobilization,Taping, Therapeutic Activities, Therapeutic Exercises Modalities Cold Pack/Ice Massage,Electric Stimulation,Hot Packs Next Visit Focus/Plan Next Note Type Treatment Note Next Visit Plan Continue manual therapy, progress RC and scapular strengthening
--- NOTE | 2023-02-12 13:06 | PT.OTN ---
Current Diagnoses Pain in right shoulder (02/12/23) Physical Therapy Treatment Note PT-OP-A Visit Information Start: 01/29/23 15:27 Freq: Status: Active Protocol: Document 02/12/23 12:09 NBM (Rec: 02/12/23 13:05 NBM [id number]) Out-Patient Physical Therapy Visit Information Visit Information Visit Type Treatment Note Visit Start Time 12:13 Visit Stop Time 13:00 Total Visit Minutes 47 Visit Number 5 Number of DIGITAL MARKETING ANALYST Visits 2 Evaluation Information Evaluation Date 01/29/23 PT-OP-B Current Condition Start: 01/29/23 15:27 Freq: Status: Active Protocol: Document 01/29/23 15:28 ES (Rec: 01/29/23 16:50 ES [id number]) Current Condition History of Current Condition Onset Date 3 months ago Current Complaints R shoulder pain History of Current Condition Patient reported that he doesn 't recall any incident that caused his R shoulder to hurt, but noticed that he was having some difficulty raising his arm up with weight in the hand beginning about 3 months ago. Was doing 50 push-ups every day for years, then his doctor told him he shouldn't do them so he stopped. Saw a new doctor who recommended he start exercising his arm again , now doing them at an incline to make them easier and it doesn't bother the shoulder. Notes that his shoulder has improved in the past month since resuming exercises. Has a hx of falling backward and landing on the R shoulder many years ago when working for the [employer]. Went to PT at the time and it got better and didn't have problems with it afterward. Has a hx of neck problems; had an injection and the pain never came back. Patient is R-hand dominant. Prior Treatments and Tests X-rays show osteophyte Future Testing and Treatments Planned MRI if the shoulder isn't getting better Treatment Goals Patient/Caregiver Goals To find out if the rotator cuff is okay/to know exactly what happened. To learn some exercises to do to get the shoulder better. Current Functional Impairments (Reported) Functional Limitations- ADL's Putting dishes away in high cabinets, pushing against resistance such as when working in his garage, putting on/taking off shirts, washing his back Functional Limitations- Mobility/Gait Rolling over in bed PT-OP-C Subjective Start: 01/29/23 15:27 Freq: Status: Active Protocol: Document 02/12/23 12:09 NBM (Rec: 02/12/23 13:05 NBM [id number]) OP-PT Subjective Patient Comments Patient Comments Anthony reports the exercises with the one lb weight are hard and he rests for a minute with them. Pt noticed his R shoulder started to bother him while he was sleeping on his side but when he woke up he felt fine. PT-OP-F Manual Assessment Start: 01/29/23 15:27 Freq: Status: Active Protocol: Document 01/29/23 15:28 ES (Rec: 01/29/23 16:50 ES [id number]) Manual Assessments Joint Mobility Assessment Joint Mobility Assessment Decreased GHJ posterior and inferior glide B. No increased pain with assessment. Increased IR ROM from S1 to L5 after posterior glides performed. PT-OP-J Posture/Palpation/Skin Start: 01/29/23 15:27 Freq: Status: Active Protocol: Document 01/29/23 15:28 ES (Rec: 01/29/23 16:50 ES [id number]) Posture Evaluation Position Standing Head/C-Spine Posture Forward Head Shoulder Posture (R) Forward Scapula Posture (R) Depressed Comments Posture Comments Anterior humeral head R. R humerus in extension at rest . Prominant R acromion and AC joint. R bicep balled at distal upper arm, no swelling/redness/ tenderness. Palpation Assessment Location R shoulder Palpation Details No tenderness throughout shoulder region. PT-OP-K Range of Motion Start: 01/29/23 15:27 Freq: Status: Active Protocol: Document 01/29/23 15:28 ES (Rec: 01/29/23 16:50 ES [id number]) Shoulder Goniometric Range of Motion Shoulder Left Active Testing Position Standing Internal Rotation Behind Back (text) L3 Right Active Testing Position Standing Internal Rotation Behind Back (text) S1 Comments Flexion, abduction, horizontal abduction all equal to L and no increase in pain. R humeral head translates anterior during IR behind back . PT-OP-M Strength Start: 01/29/23 15:27 Freq: Status: Active Protocol: Document 01/29/23 15:28 ES (Rec: 01/29/23 16:50 ES [id number]) Shoulder Strength Shoulder Manual Muscle Testing Left Flexion 5 Normal Abduction (C5) 5 Normal External Rotation 5 Normal Internal Rotation 5 Normal Right Flexion 4+ Good+ Abduction (C5) 4- Good- External Rotation 3+ Fair+ Internal Rotation 5 Normal Comments Elbow flex/ext 5/5 Increased pain with ER resistance PT-OP-Q Treatments Start: 01/29/23 15:27 Freq: Status: Active Protocol: Document 02/12/23 12:09 [facility] (Rec: 02/12/23 13:05 [facility] [id number]) Therapeutic Exercises Supine Exercises pec stretch Supine Exercise Name W position Reps/Minutes AROM x5, then 30s hold x2 Comments positive feedback response Shoulder RROM Supine Exercise Name IR/ER at 60-90 degrees abd Side right Resistance 1lb Equipment Used towel under RUE Reps/Minutes x10 Comments cued for humeral and scapular control Sidelying Exercises Shoulder ER Resistance 1lb Reps/Minutes x10 Comments at 90 degrees flexion, HEP ( see handout) Shoulder flex Resistance 1lb Reps/Minutes x10 Comments HEP (see handout) Shoulder abd Resistance 1lb Reps/Minutes x10 Comments cues for rolling fwd more onto side Standing Exercises handwalking Side bilateral Resistance yellow loop around wrists Equipment Used handrail Reps/Minutes x15 ft ea Comments vc upright posture, pain-free range Doorway pec stretch Standing Exercise Name Angles: Low, Mid - added to HEP Side bilateral Reps/Minutes 30s ea Comments Right and Bilateral IR towel stretch Side right Reps/Minutes [id number] Comments pt demonstrates passive stretch today Doorway isometrics Standing Exercise Name IR/ER Reps/Minutes 30s ea Comments improved hand positioning Manual Therapy Treatment Joint Mobilizations GHJ Direction A-P, S-I Grade II Body Position Supine Comments in 90 degrees abd Sustained posterior glide during manual IR stretch 5x30s Self-Care/Home Management Treatment Education Patient Education Home Exercise Program Other Education Added to HEP: resisted ER bandwalking- HO given. PT-OP-R Modalities Start: 01/29/23 15:27 Freq: Status: Active Protocol: Document 02/12/23 12:09 [facility] (Rec: 02/12/23 13:05 [facility] [id number]) Hot Pack/Cold Pack Treatment Cold Pack Location R shoulder Patient Position Hooklying Treatment Duration (minutes) 10 Patient Tolerance Good Comments LEs on bolster PT-OP-T Assessment and Plan Start: 01/29/23 15:27 Freq: Status: Active Protocol: Document 02/12/23 12:09 [facility] (Rec: 02/12/23 13:05 [facility] [id number]) Physical Therapy Assessment Impairments Impairments Functional Activities,Pain, Posture,ROM,Strength Goals Three Impairment Function Longterm Goal (LTG) Patient will score 20 or less on QuickDASH indicating clinically significant improvement in function. LTG Duration 8 weeks (03/26/23) Two Impairment Strength Short Term Goal (STG) Patient will increase R shoulder ER strength to 4/5, abduction strength to 5/5. STG Duration 4 weeks (02/26/23) Tight Rope Walker Goal (LTG) Patient will be able to lift at least 6 lbs above shoulder height without increased pain to be able to put dishes away in cabinets. 02/09/23: Pt is able to put dishes away overhead now but still notices increased pain doing so. LTG Duration 8 weeks (03/26/23) One Impairment ROM Short Term Goal (STG) Patient will increase R shoulder IR AROM to L4 to be able to wash his back. STG Duration 4 weeks (02/26/23) Assessment Summary Assessment Anthony requires cues with sidelying ex's for form with elbow abducted to 90 deg. He demonstrates good eccentric control and pacing with all ex 's, and improved passive form with internal rotation towel stretch. He tolerates resisted shoulder external rotation with bandwalking w/ cues for pain-free range - Added to HEP : resisted ER bandwalking- HO given. Physical Therapy Plan Frequency and Duration Frequency of Treatment 1-2x/week Duration of treatment (weeks) 8 Plan of Care Start Date 01/29/23 Plan of Care End Date 03/26/23 Therapeutic Interventions Therapeutic Interventions Home Exercise Program,Joint Mobilizations,Manual Therapy, Neuromuscular Re-education, Patient/Caregiver Education, Self-Care/Home Management,Soft Tissue Mobilization,Taping, Therapeutic Activities, Therapeutic Exercises Modalities Cold Pack/Ice Massage,Electric Stimulation,Hot Packs Next Visit Focus/Plan Next Note Type Treatment Note Next Visit Plan Continue manual therapy, progress RC and scapular strengthening
--- NOTE | 2023-02-15 10:51 | PT.OTN ---
Current Diagnoses Pain in right shoulder (02/15/23) Physical Therapy Treatment Note PT-OP-A Visit Information Start: 01/29/23 15:27 Freq: Status: Active Protocol: Document 02/15/23 10:11 ES (Rec: 02/15/23 10:50 ES [id number]) Out-Patient Physical Therapy Visit Information Visit Information Visit Type Discharge Summary Visit Start Time 10:05 Visit Stop Time 10:40 Total Visit Minutes 35 Visit Number 6 Evaluation Information Evaluation Date 01/29/23 PT-OP-B Current Condition Start: 01/29/23 15:27 Freq: Status: Active Protocol: Document 01/29/23 15:28 ES (Rec: 01/29/23 16:50 ES [id number]) Current Condition History of Current Condition Onset Date 3 months ago Current Complaints R shoulder pain History of Current Condition Patient reported that he doesn 't recall any incident that caused his R shoulder to hurt, but noticed that he was having some difficulty raising his arm up with weight in the hand beginning about 3 months ago. Was doing 50 push-ups every day for years, then his doctor told him he shouldn't do them so he stopped. Saw a new doctor who recommended he start exercising his arm again , now doing them at an incline to make them easier and it doesn't bother the shoulder. Notes that his shoulder has improved in the past month since resuming exercises. Has a hx of falling backward and landing on the R shoulder many years ago when working for the [employer]. Went to PT at the time and it got better and didn't have problems with it afterward. Has a hx of neck problems; had an injection and the pain never came back. Patient is R-hand dominant. Prior Treatments and Tests X-rays show osteophyte Future Testing and Treatments Planned MRI if the shoulder isn't getting better Treatment Goals Patient/Caregiver Goals To find out if the rotator cuff is okay/to know exactly what happened. To learn some exercises to do to get the shoulder better. PT-OP-C Subjective Start: 01/29/23 15:27 Freq: Status: Active Protocol: Document 02/15/23 10:11 ES (Rec: 02/15/23 10:50 ES [id number]) OP-PT Subjective Patient Comments Patient Comments Patient stated his shoulder has been feeling really good, not really having any pain anymore and is able to lift dishes up into high cabinets now without difficulty. Has had one night in the last week where he woke up with some pain but it went away. Still having trouble with the exercises lying on his side with 1lb weight. Patient Reported Progress Improving Patient Questionnaires Quick Dash- Upper Extremity Quick Dash UE Score 4.5 Quick Dash UE Impairment 1 to 19% Impaired (Score 1-19) PT-OP-K Range of Motion Start: 01/29/23 15:27 Freq: Status: Active Protocol: Document 02/15/23 10:11 ES (Rec: 02/15/23 10:50 ES [id number]) Shoulder Goniometric Range of Motion Shoulder Right Active Internal Rotation Behind Back (text) L4 PT-OP-M Strength Start: 01/29/23 15:27 Freq: Status: Active Protocol: Document 02/15/23 10:11 ES (Rec: 02/15/23 10:50 ES [id number]) Shoulder Strength Shoulder Manual Muscle Testing Right Flexion 4+ Good+ Abduction (C5) 4 Good External Rotation 4- Good- Internal Rotation 5 Normal PT-OP-Q Treatments Start: 01/29/23 15:27 Freq: Status: Active Protocol: Document 02/15/23 10:11 ES (Rec: 02/15/23 10:50 ES [id number]) Therapeutic Exercises Standing Exercises Shoulder abd Side right Resistance 1lb Reps/Minutes x10 Comments Instructed for home (see handout) Shoulder press Side right Resistance 1lb Reps/Minutes x10 Comments instructed for home (see handout) Self-Care/Home Management Treatment Education Patient Education Home Exercise Program,Joint Protection Other Education Educated on sleeping position using pillow under side to create trough for R shoulder. Instructed to d/c sidelying ex 's, to increase resistance as tolerated, then continue shoulder HEP 2-3x/week for maintenance. PT-OP-R Modalities Start: 01/29/23 15:27 Freq: Status: Active Protocol: Document 02/12/23 12:09 NBM (Rec: 02/12/23 13:05 NBM [id number]) Hot Pack/Cold Pack Treatment Cold Pack Location R shoulder Patient Position Hooklying Treatment Duration (minutes) 10 Patient Tolerance Good Comments LEs on bolster PT-OP-T Assessment and Plan Start: 01/29/23 15:27 Freq: Status: Active Protocol: Document 02/15/23 10:11 ES (Rec: 02/15/23 10:50 ES [id number]) Physical Therapy Assessment Goals Three Impairment Function Product Safety And Standards Engineer Goal (LTG) Patient will score 20 or less on QuickDASH indicating clinically significant improvement in function. LTG Duration 8 weeks (03/26/23) - met 02/15/23 Two Impairment Strength Short Term Goal (STG) Patient will increase R shoulder ER strength to 4/5, abduction strength to 5/5. STG Duration 4 weeks (02/26/23) - partially met Product Safety And Standards Engineer Goal (LTG) Patient will be able to lift at least 6 lbs above shoulder height without increased pain to be able to put dishes away in cabinets. 02/09/23: Pt is able to put dishes away overhead now but still notices increased pain doing so. LTG Duration 8 weeks (03/26/23) - met 02/15/23 One Impairment ROM Short Term Goal (STG) Patient will increase R shoulder IR AROM to L4 to be able to wash his back. STG Duration 4 weeks (02/26/23) - met 02/15/23 Progress Towards Goals Progress Towards Goals Goals Met Assessment Summary Assessment Anthony was seen for a total of 6 visits to address R shoulder pain. He participated in strengthening, stretching, manual therapy, and education on posture, body mechanics, HEP, and joint protection. He made excellent progress, reporting decreased pain and improved use of R arm to lift and carry objects. He had a significant improvement in QuickDASH score indicating low disability. His strength improved though still weak in to ER; likely has some RC dysfunction that will impact his ability to increase strength further into ER but this does not appear to significantly affect his function. He has otherwise met PT goals and is appropriate to d/c to independent program at this time.
== END 2023-05-07 15:30 ==
LOC: PHYS 10:00
PROVIDERS: Family Provider Family Medicine; PCP Family Medicine; Referring Provider Family Medicine; Visit Provider Family Medicine
DX: M25.511 Pain in right shoulder (principal)
CPT/HCPCS: 97110; 97140; 97161; 97535

== ENCOUNTER → 2023-04-27 08:50 | Outpatient (CLI) | payer MEDICARE, SELFPAY ==
[2023-04-27 10:37] LABS: Add Manual Diff / Slide Review NO; Basophils Absolute Auto 0 /uL (0-100); Basophils Percent Auto 0.7 % (0-2); Eosinophils Absolute Auto 200 /uL (0-450); Hematocrit 39.3 % (41-53); Hemoglobin 13.4 g/dL (13.5-17.5); Lymphocytes Absolute Auto 2000 /uL (1100-4500); Lymphocytes Percent Auto 48.7 % (25-40); Mean Corpuscular HGB Conc 34.2 % (30-36); Mean Corpuscular Hemoglobin 32.2 PG (26-34); Mean Corpuscular Volume 94.2 fL (80-100); Monocytes Absolute Auto 400 /uL (0-900); Neutrophils Absolute Auto 1500 /uL (1500-7000); Neutrophils Percent Auto 37.6 % (50-75); Platelet Count 190 X10^3/uL (150-400); Red Blood Cell Count 4.17 X10^6/uL (4.5-5.9); Red Cell Distribution Width 13.4 % (11.6-14.8); White Blood Cell Count 4.1 X10^3/uL (4.5-11.0)
[2023-04-27 11:02] LABS: Alanine Aminotransferase 21 IU/L (<50); Albumin 3.9 g/dL (3.5-5.0); Albumin Globulin Ratio 1.3 (1.0-2.8); Alkaline Phosphatase 59 U/L (38-126); Aspartate Aminotransferase 23 IU/L (17-59); BUN Creatinine Ratio 22.2 (6-22); Bilirubin Total 0.5 mg/dL (0.2-1.3); Blood Urea Nitrogen 20 mg/dL (9-20); Calcium 9.2 mg/dL (8.4-10.2); Carbon Dioxide 30 mmol/L (22-32); Chloride 102 mmol/L (98-107); Estimated Glomerular Filt Rate > 60 mL/min (>60); Globulin 3.1 g/dL (1.7-4.1); Glucose 103 mg/dL (80-110); HEMOLYSIS < 15 (0-50); Potassium 4.1 mmol/L (3.4-5.1); Sodium 140 mmol/L (137-145)
== END ==
PROVIDERS: Family Provider Family Medicine; PCP Family Medicine; Referring Provider Family Medicine; Visit Provider Family Medicine
DX: D64.9 Anemia, unspecified (principal); R42 Dizziness and giddiness
CPT/HCPCS: 36415; 80053; 85025

== ENCOUNTER 2023-08-16 07:38 | Day surgery (SDC) | payer MEDICARE, SELFPAY ==
--- NOTE | 2023-08-16 | PATH_ITS ---
[facility] Accession Number: [id number] No. of containers..01 Tissue . 01 Material submitted: . esophagus, E-G Junction - GE JUNCTION . 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 Negative for dysplasia and malignancy. MRV 08/22/2023 1711 Local . 01 Electronically signed: . Kristin Irwin MD, Pathologist NPI- [id number] . 01 Gross description: . GE JUNCTION: Received in formalin is 3 fragment(s) of kilpatrick, soft tissue measuring 0.3 x 0.3 x 0.2 cm to 0.3 x 0.2 x 0.1 cm submitted entirely in 1 cassette(s) /AAY 08/17/2023 0444 Local . 01 Pathologist provided ICD-10: K22.70 . 01 CPT . 074307 Specimen Comment: A courtesy copy of this report has been sent to [phone] Performed at: 01 [facility] [address] [place] [address], [place], [place] [id number] MD Roger Brady MD Phone: [phone]
[2023-08-16 07:58] VITALS: BP 163/80; PULSE 58; RESP 19; TEMP 36.2; O2SAT 97; BMI 22.8
--- NOTE | 2023-08-16 08:06 | PM.HP.1 ---
History of Present Illness History of Present Illness Date Patient Seen: 08/16/23 Time Patient Seen: 08:06 Chief complaint: EGD Narrative: Anthony is an 82-year-old man with a history of Lopes's esophagus. See the previous office note for details. 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) Colonic stricture Colonic volvulus Diverticulosis Encounter for initial annual wellness visit (AWV) in Medicare patient Gastroesophageal reflux disease (10/20/13) Glaucoma (10/20/13) Hearing loss History of appendicitis Hyperlipidemia (02/27/13) Leukopenia Screening for colorectal cancer Surgical History History of appendectomy History of bone marrow biopsy History of cataract removal with insertion of prosthetic lens (09/01/14) History of cataract removal with insertion of prosthetic lens (08/19/14) History of esophagogastroduodenoscopy (EGD) (~08/2020) Volvulus of midgut Family History Son Depression Suicide Social History household members: spouse Smoking Status: Never smoker alcohol intake: current Meds Home Medications and Allergies Home Medications Medication Instructions Recorded Confirmed Type brimonidine 0.2 %-timolol 0.5 % 1 drp OPHTH DAILY #5 mL 05/29/12 08/16/23 History eye drops (Combigan) timolol 0.5 % eye drops 1 drp ophthalmic (eye) BID 09/09/20 08/16/23 History pantoprazole 40 mg tablet,delayed See Rx Instructions .Route 12/18/22 08/16/23 Rx release .COMPLEX #90 tabs simvastatin 40 mg tablet See Rx Instructions .Route 12/18/22 08/16/23 Rx .COMPLEX #90 tabs Allergies Allergy/AdvReac Type Severity Reaction Status Date / Time No Known Drug Allergies Allergy Verified 08/16/23 07:57 Exam Vital Signs (past 8 hours): - 08/16/23 07:58 Temperature 97.1 F L Pulse Rate 58 L Respiratory Rate 19 Blood Pressure 163/80 H Pulse Oximetry 97 Oxygen Delivery Method Room Air Oxygen Delivery Method Room Air Const General: No acute distress Assessment & Plan Assessment and plan (1) 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
[2023-08-16] MEDS: LACTATED RINGERS 1,000 ML 42 ML IV (08:08)
[2023-08-16 08:30] VITALS: BP 169/99; PULSE 63; RESP 18; TEMP 36.2; O2SAT 96
--- NOTE | 2023-08-16 08:32 | PM.OP.EGD ---
Operative Date/Time/Diagnoses Date of procedure: 08/16/23 Time of procedure: 08:33 Pre-op diagnosis: Lopes esophagus Post-op diagnosis: same Procedure & Clinicians Study performed: Esophagogastroduodenoscopy Same procedure as scheduled: Yes Surgeon: Vahe Godinez Procedure Notes Procedure in detail: Surgeon: Vahe Godinez MD Anesthesia: Davina Martin CRNA A timeout was performed. A bite blocked was placed. The patient was positioned in the left lateral decubitus position. Anesthesia was administered. The endoscope was inserted through the bite block and passed through the esophagus and stomach and into the duodenum. The duodenal mucosa appeared normal. The scope was withdrawn into the duodenal bulb and abnormalities were seen. The scope was withdrawn into the stomach. There were some fundic gland polyps stomach. The scope was retroflexed and no significant hernia was noted. The scope was withdrawn into the esophagus and islands of salmon-colored mucosa were noted at the GE junction. Biopsies were taken from the GE junction with cold forceps. The remainder of the esophagus was normal. The scope was withdrawn. The patient was awakened and brought to recovery. Sedation time: 9 minutes Findings: Ansley-colored mucosa at the GE junction Post-procedure Disposition: PACU
[2023-08-16 08:34] VITALS: BP 120/71; PULSE 58; RESP 12; O2SAT 94
[2023-08-16 08:40] VITALS: BP 106/71; PULSE 54; RESP 14; TEMP 36.8; O2SAT 95
[2023-08-16 08:44] VITALS: BP 101/66; PULSE 55; RESP 12; O2SAT 95
[2023-08-16 08:50] VITALS: BP 129/72; PULSE 54; RESP 16; O2SAT 96
== END 2023-08-16 09:05 | disposition home or self-care (01) ==
PROVIDERS: Family Provider Family Medicine; PCP Family Medicine; Referring Provider Surgery; Visit Provider Surgery
PROC: 0DJ08ZZ Inspection of Upper Intestinal Tract, Via Natural or Artificial Opening Endoscopic (ICD-10-PCS; CPT 43235; principal; 2023-08-16 08:45)
DX: K22.70 Barrett's esophagus without dysplasia (principal)
CPT/HCPCS: 43239; J2704

== ENCOUNTER → 2024-01-01 13:21 | Outpatient (CLI) | payer MEDICARE, SELFPAY ==
[2024-01-01 13:42] LABS: Add Manual Diff / Slide Review NO; Basophils Absolute Auto 100 /uL (0-100); Basophils Percent Auto 0.9 % (0-2); Eosinophils Absolute Auto 200 /uL (0-450); Eosinophils Percent Auto 2.8 % (2-4); Hematocrit 39.8 % (41-53); Hemoglobin 13.5 g/dL (13.5-17.5); Lymphocytes Absolute Auto 2500 /uL (1100-4500); Lymphocytes Percent Auto 32.3 % (25-40); Mean Corpuscular HGB Conc 33.9 % (30-36); Mean Corpuscular Hemoglobin 32.1 PG (26-34); Mean Corpuscular Volume 94.8 fL (80-100); Monocytes Absolute Auto 500 /uL (0-900); Monocytes Percent Auto 5.9 % (3-14); Neutrophils Absolute Auto 4500 /uL (1500-7000); Neutrophils Percent Auto 58.1 % (50-75); Platelet Count 218 X10^3/uL (150-400); Red Cell Distribution Width 13.2 % (11.6-14.8); White Blood Cell Count 7.8 X10^3/uL (4.5-11.0)
[2024-01-01 14:12] LABS: Alanine Aminotransferase 19 IU/L (<50); Albumin 4.2 g/dL (3.5-5.0); Albumin Globulin Ratio 1.5 (1.0-2.8); Alkaline Phosphatase 71 U/L (38-126); Aspartate Aminotransferase 25 IU/L (17-59); BUN Creatinine Ratio 20.9 (6-22); Bilirubin Total 0.9 mg/dL (0.2-1.3); Blood Urea Nitrogen 19 mg/dL (9-20); Calcium 8.6 mg/dL (8.4-10.2); Carbon Dioxide 31 mmol/L (22-32); Chloride 104 mmol/L (98-107); Estimated Glomerular Filt Rate > 60 mL/min (>60); Globulin 2.8 g/dL (1.7-4.1); Glucose 96 mg/dL (80-110); HEMOLYSIS < 15 (0-50); Potassium 4.5 mmol/L (3.4-5.1); Sodium 139 mmol/L (137-145)
== END ==
PROVIDERS: Family Provider Family Medicine; PCP Family Medicine; Referring Provider Family Medicine; Visit Provider Family Medicine
DX: Z00.00 Encounter for general adult medical examination without abnormal findings (principal); E78.5 Hyperlipidemia, unspecified; D64.9 Anemia, unspecified
CPT/HCPCS: 36415; 80053; 85025

== ENCOUNTER → 2024-12-19 12:01 | Outpatient (CLI) | payer MEDICARE, SELFPAY ==
[2024-12-19 13:41] LABS: Alanine Aminotransferase 23 IU/L (<50); Albumin 4.2 g/dL (3.5-5.0); Albumin Globulin Ratio 1.7 (1.0-2.8); Alkaline Phosphatase 69 U/L (38-126); Aspartate Aminotransferase 28 IU/L (17-59); BUN Creatinine Ratio 20.4 (6-22); Bilirubin Total 0.9 mg/dL (0.2-1.3); Blood Urea Nitrogen 20 mg/dL (9-20); Carbon Dioxide 27 mmol/L (22-32); Chloride 102 mmol/L (98-107); Cholesterol 190 mg/dL (140-199); Estimated Glomerular Filt Rate > 60 mL/min (>60); Globulin 2.5 g/dL (1.7-4.1); Glucose 109 mg/dL (70-99); HDL Cholesterol 56 mg/dL (40-60); HEMOLYSIS < 15 (0-50); LDL Cholesterol Calculated 114 mg/dL (<100); Potassium 4.8 mmol/L (3.4-5.1); Sodium 137 mmol/L (137-145); Total Protein 6.7 g/dL (6.3-8.2); Triglycerides 101 mg/dL (35-150)
== END ==
LOC: LAB 12:03
PROVIDERS: Family Provider Family Medicine; PCP Family Medicine; Referring Provider Family Medicine; Visit Provider Family Medicine
DX: E78.5 Hyperlipidemia, unspecified (principal); Z00.00 Encounter for general adult medical examination without abnormal findings; K22.70 Barrett's esophagus without dysplasia; R73.01 Impaired fasting glucose
CPT/HCPCS: 36415; 80053; 80061